=== PATIENT | female | born 1955 | race Caucasian/White ===

== ENCOUNTER 2019-10-16 13:05 | Emergency (ER) | payer MEDICAID ==
[2019-10-16] MEDS ORDERED: OMEPRAZOLE20 M1 PO (13:38)
[2019-10-16] MEDS ORDERED: EC ASPIRIN325 MG PO (13:38)
[2019-10-16] MEDS ORDERED: CYMBALTA60 MG PO (13:39)
[2019-10-16] MEDS ORDERED: NEURONTIN300 MG PO (13:39)
[2019-10-16] MEDS ORDERED: MOTRIN800 MG PO (13:40)
[2019-10-16] MEDS ORDERED: ROPINIROLE3 MG PO (13:40)
[2019-10-16] MEDS ORDERED: KLONOPIN2 MG PO (13:41)
[2019-10-16] MEDS ORDERED: BENTYL PO (13:43)
[2019-10-16] MEDS ORDERED: FEXOFENADINE60 MG PO (13:46)
[2019-10-16] MEDS ORDERED: SYMBICORT1 AE1 IN (13:47)
[2019-10-16] MEDS ORDERED: PROAIR HFA IN (13:47)
[2019-10-16] MEDS ORDERED: FISH OIL MAXI1200 M1 PO (13:48)
[2019-10-16] MEDS ORDERED: CALCIUM + D PO (13:50)
[2019-10-16] MEDS ORDERED: ZOFRAN4 MG/TAB PO (13:50)
[2019-10-16] MEDS ORDERED: RIZATRIPTAN BEN10 MG PO (13:52)
[2019-10-16] MEDS ORDERED: MAGNESIUM400 M1 PO (13:54)
[2019-10-16] MEDS ORDERED: MECLIZINE25 MG PO (13:54)
[2019-10-16] MEDS ORDERED: IPRATROPIU0.5 MG/3 M IN (13:56)
[2019-10-16] MEDS ORDERED: PROBIOTI2 PO (13:58)
[2019-10-16] MEDS ORDERED: BACLOFEN10 MG PO (13:58)
[2019-10-16] MEDS ORDERED: NASACORT A55 MCG/ACT NAB (13:59)
[2019-10-16] MEDS ORDERED: VITAMIN D35000 UNIT PO (13:59)
[2019-10-16] MEDS ORDERED: KEFLEX500 M1 PO (15:04)
[2019-10-16 15:15] VITALS: BP 129/79
== END 2019-10-16 15:15 | disposition home or self-care (01) ==
LOC: ED 13:05
DX: M17.12 Unilateral primary osteoarthritis, left knee (principal); L02.416 Cutaneous abscess of left lower limb; K14.0 Glossitis; G62.9 Polyneuropathy, unspecified

== ENCOUNTER 2020-03-03 13:04 | Emergency (ER) | payer BC, MEDICAID ==
[~2020-03-03] VITALS: Ht 172.7 cm; Wt 100.0 kg
[~2020-03-03 13:04] MED LIST: BACLOFEN10 MG PO; BENTYL PO; CALCIUM + D PO; CYMBALTA60 MG PO; EC ASPIRIN325 MG PO; FEXOFENADINE60 MG PO; FISH OIL MAXI1200 M1 PO; IPRATROPIU0.5 MG/3 M IN; KEFLEX500 M1 PO; KLONOPIN2 MG PO; MAGNESIUM400 M1 PO; MECLIZINE25 MG PO; MOTRIN800 MG PO; NASACORT A55 MCG/ACT NAB; NEURONTIN300 MG PO; OMEPRAZOLE20 M1 PO; PROAIR HFA IN; PROBIOTI2 PO; RIZATRIPTAN BEN10 MG PO; ROPINIROLE3 MG PO; SYMBICORT1 AE1 IN; VITAMIN D35000 UNIT PO; ZOFRAN4 MG/TAB PO
[2020-03-03 13:36] LABS: HEMATOCRIT 40.4 % (37.0-47.0); HEMOGLOBIN 12.8 g/dl (12.0-16.0); IMMATURE GRANULOCYTES 1.1 % (0.0-5.0); MEAN CELL VOLUME 88.8 fL CALC (80.0-100.0); MEAN CORPUSCULAR HGB 28.1 pG CALC (26.0-32.0); MEAN CORPUSCULAR HGB CONC 31.7 g/dL CAL (32.0-36.0); NEUT# 2.21 thou/uL (2.00-7.15); RED BLOOD COUNT 4.55 mill/uL (4.20-5.60); RED CELL DISTRI WIDTH 13.7 % (11.5-15.5)
[2020-03-03 13:50] LABS: ALBUMIN 3.9 g/dL (3.2-5.0); ALKALINE PHOSPHATASE 138 u/l (38-126); ANION GAP 10 (6-22 (CALC)); BILIRUBIN, TOTAL 0.6 mg/dL (0.0-1.4); BUN 11 mg/dL (8-23); BUN/CREATININE RATIO 14 (12-20 (CALC)); CARBON DIOXIDE 32 mmol/l (22-30); CHLORIDE 99 mmol/l (95-108); CREATININE 0.8 mg/dL (0.5-1.0); GFR > 60 ML/MIN (>=60 (CALC)); GFR FOR AFR.AMER. > 60 ML/MIN (>=60 (CALC)); LIPASE 70 u/l (23-300); POTASSIUM 4.1 mmol/l (3.5-5.1); SGOT/AST 44 u/l (9-36); SODIUM 137 mmol/l (137-146); TOTAL PROTEIN 6.7 g/dL (6.3-8.2)
[2020-03-03 13:54] LABS: C-REACTIVE PROTEIN 3.9 mg/dL (0-0.9)
[2020-03-03 16:00] LABS: URINE BILIRUBIN - DIPSTICK NEGATIVE (NEGATIVE); URINE BLOOD DIPSTICK NEGATIVE (NEGATIVE); URINE COLOR YELLOW; URINE GLUCOSE - DIPSTICK NEGATIVE (NEGATIVE); URINE KETONE NEGATIVE (NEGATIVE); URINE LEUK ESTERASE NEGATIVE (NEGATIVE); URINE NITRITE - DIPSTICK NEGATIVE (Negative); URINE PH 7.5 (4.5-8.0); URINE PROTEIN - DIPSTICK NEGATIVE (NEG-TRACE); URINE UROBILINOGEN - DIPSTICK 0.2 E.U./dL (0.2)
[2020-03-03 16:35] VITALS: BP 135/55
== END 2020-03-03 16:35 | disposition home or self-care (01) | DRG 103 ==
LOC: ED 13:04
PROVIDERS: Family Medicine
DX: R51.9 Headache, unspecified (principal); R52 Pain, unspecified; I10 Essential (primary) hypertension; K21.9 Gastro-esophageal reflux disease without esophagitis; J45.909 Unspecified asthma, uncomplicated; G62.9 Polyneuropathy, unspecified; M79.7 Fibromyalgia; Z20.828 Contact with and (suspected) exposure to other viral communicable diseases
CPT/HCPCS: Q9967